=== PATIENT | male | born 1995 | race Hispanic/Latino ===

== ENCOUNTER 2019-08-21 13:29 | Emergency (ER) | payer OTHER | END 2019-08-21 13:45 | disposition home or self-care (01) | LOC: EDH 13:29 | DX: G47.00 Insomnia, unspecified (principal); M79.10 Myalgia, unspecified site; F31.9 Bipolar disorder, unspecified; F20.9 Schizophrenia, unspecified; Z72.0 Tobacco use; Z88.1 Allergy status to other antibiotic agents | CPT/HCPCS: 99281 ==